=== PATIENT | female | born 1970 | race African-American/Black ===

== ENCOUNTER → 2021-05-07 | Outpatient (CLI) | payer OTHER ==
--- NOTE | 2021-05-07 13:46 | RAD ---
EXAM: Pelvic sonogram. HISTORY: Irregular cycles. TECHNIQUE: Transabdominal and transvaginal sonographic imaging of the pelvis was performed. COMPARISON: None. FINDINGS: The uterus measures 8.4 x 4.9 x 4.3 cm. The uterine parenchyma is heterogeneous. There is a small hypoechoic region superior to the fundus on transabdominal images. This is not seen on transva ginal images and is likely due to fluid-filled bowel. The endometrial stripe measures 6 mm in thickne ss. The ovaries are normal in size and demonstrate normal blood flow. There is trace right adnexal fr ee fluid. IMPRESSION: 1. Heterogeneous uterine parenchyma. No discrete lesion such as a fibroid is seen. 2. Normal endometrial stripe thickness for the reported premenopausal status the patient. Electronically signed by: Tiana Posadas MD (05/07/2021 1:44 PM) [id number]
== END ==
LOC: US 12:50
PROVIDERS: ATTEND Obstetrics & Gynecology
DX: N92.0 Excessive and frequent menstruation with regular cycle (principal)
CPT/HCPCS: 76830; 76856